=== PATIENT | female | born 1990 | race Caucasian/White ===

== ENCOUNTER 2017-10-14 10:44 | Inpatient (IN) | payer MEDICAID, OTHER ==
[~2017-10-14] VITALS: Ht 162.6 cm; Wt 63.0 kg
[2017-10-14] VITALS (11 sets, daily range): BP systolic 90–117; BP diastolic 52–74
[2017-10-14] MEDS ORDERED: SODIUM CHLORIDE 0.9% 500 ML IV ONE (11:30)
[2017-10-14 11:53] LABS: Basophils # (auto) 0 uL; Eosinophils # (auto) 0 uL; Monocytes # (auto) 0.3 uL; Neutrophils # (auto) 1.4 uL; White Blood Cell 2.7 10^3/uL (4.4-10.8)
[2017-10-14 11:55] LABS: Basophils % (auto) 1.5 % (0.0-2.0); Hematocrit 12.9 % (36.0-46.0); Lymphocytes % (auto) 35.4 % (10.0-50.0); Mean Corpuscular Hemoglobin 15.8 pg (28.0-32.0); Mean Corpuscular Hgb Conc. 27.8 g/dL (32.0-36.0); Mean Corpuscular Volume 56.8 fL (80.0-100.0); Monocytes % (auto) 11.6 % (0.0-12.0); Neutrophils % (auto) 51.5 % (37.0-80.0); Nucleated Red Blood Cells % 2.5 %; Platelet Count (auto) 243 10^3/uL (140-450); Red Blood Cells 2.27 10^6/uL (4.0-5.20)
[2017-10-14 11:57] LABS: Hemoglobin 3.6 g/dL (12.2-16.2); Red Cell Distribution Width 21.6 % (11.8-14.3)
[2017-10-14 12:28] LABS: Albumin 3.4 g/dL (3.4-5.0); BUN/Creatinine Ratio 8.6; Bilirubin, Total 1.6 mg/dL (0.2-1.0); Calcium 7.9 mg/dL (8.5-10.1); Potassium 3.3 mmol/L (3.5-5.1); Total Protein 6.3 g/dL (6.4-8.2)
[2017-10-14] MEDS ORDERED: MORPHINE SULF INJ 2 MG/ML SYRINGE 1ML IV PRN ×2 (12:45)
[2017-10-14] MEDS ORDERED: PROMETHAZINE HCL 25 MG/ML 1ML IV PRN (12:45)
[2017-10-14] MEDS ORDERED: LACTULOSE 20Gm/30ML SOLN PO PRN (12:45)
[2017-10-14] MEDS ORDERED: NITROGLYCERIN 0.4 MG SL TAB SL PRN (12:45)
[2017-10-14] MEDS ORDERED: TEMAZEPAM 15 MG CAP PO PRN (12:45)
[2017-10-14] MEDS ORDERED: HYDROcodone-ACET 5/325MG TAB PO PRN (12:45)
[2017-10-14] MEDS ORDERED: ACETAMINOPHEN 500 MG TAB PO PRN (12:45)
[2017-10-14] MEDS ORDERED: LORazepam 0.5 MG TAB PO PRN (12:45)
[2017-10-14] MEDS: SOD CHL 0.9%/ KCL 20MEQ 1,000 ML IV SCH ×2 (13:46→22:34)
[2017-10-14] MEDS ORDERED: GASTROGRAFIN 30 ML SOL ONE (14:57)
[2017-10-14] MEDS ORDERED: IOHEXOL 300 MG/ML 100ML BOTTLE IJ ONE (16:53)
[2017-10-14 22:38] LABS: Hematocrit 22.5 % (36.0-46.0)
[2017-10-14 22:59] LABS: Follicle Stimulating Hormone 7.4 IU/L (SEE BELOW); Leuteinizing Hormone 12.2 IU/L; Prolactin 5.56 ng/mL (2.8-29.2)
[2017-10-15] VITALS (14 sets, daily range): BP systolic 93–125; BP diastolic 55–70
[2017-10-15] MEDS ORDERED: FERR1TAB36 PO (00:53)
[2017-10-15 01:15] LABS: Hematocrit 21.3 % (36.0-46.0)
[2017-10-15 01:20] LABS: Hemoglobin 6.4 g/dL (12.2-16.2)
[2017-10-15 07:12] LABS: Urine Bacteria MANY /hpf (None Seen); Urine Blood 3+ /uL (Negative); Urine Specific Gravity 1.009 (1.001-1.035); Urine WBC 50 /hpf (0 - 5)
[2017-10-15] MEDS: SOD CHL 0.9%/ KCL 20MEQ 1,000 ML IV SCH ×2 (09:00→19:09)
[2017-10-15] MEDS: PANTOPRAZOLE 40 MG TAB PO SCH (10:01)
[2017-10-15 11:44] LABS: Basophils # (auto) 0 uL; Eosinophils # (auto) 0 uL; Hemoglobin 7.5 g/dL (12.2-16.2); Lymphocytes # (auto) 0.8 uL; Neutrophils # (auto) 2.4 uL
[2017-10-15 11:47] LABS: Basophils % (auto) 0.8 % (0.0-2.0); Eosinophils % (auto) 0.4 % (0.0-7.0); Hematocrit 24.4 % (36.0-46.0); Lymphocytes % (auto) 22.8 % (10.0-50.0); Mean Corpuscular Hemoglobin 22.2 pg (28.0-32.0); Mean Corpuscular Hgb Conc. 30.8 g/dL (32.0-36.0); Mean Corpuscular Volume 72.2 fL (80.0-100.0); Monocytes # (auto) 0.4 uL; Monocytes % (auto) 9.6 % (0.0-12.0); Neutrophils % (auto) 66.4 % (37.0-80.0); Nucleated Red Blood Cells % 0.6 %; Platelet Count (auto) 222 10^3/uL (140-450); Red Blood Cells 3.38 10^6/uL (4.0-5.20); White Blood Cell 3.7 10^3/uL (4.4-10.8)
[2017-10-15 11:52] LABS: Red Cell Distribution Width 32.6 % (11.8-14.3)
[2017-10-15 12:10] LABS: Cholesterol 72 mg/dL (< 200); HDL Cholesterol 18 mg/dL (40-59); LDL Cholesterol 55 mg/dL (< 100); Triglycerides 87 mg/dL (< 150)
[2017-10-16] VITALS (7 sets, daily range): BP systolic 95–107; BP diastolic 53–66
[2017-10-16] MEDS: SOD CHL 0.9%/ KCL 20MEQ 1,000 ML IV SCH ×2 (05:09→14:45)
[2017-10-16] MEDS: PANTOPRAZOLE 40 MG TAB PO SCH (10:20)
[2017-10-16 14:19] LABS: Basophils # (auto) 0 uL; Lymphocytes # (auto) 1.5 uL; Monocytes # (auto) 0.2 uL; Neutrophils % (auto) 60.8 % (37.0-80.0); White Blood Cell 4.7 10^3/uL (4.4-10.8)
[2017-10-16 14:21] LABS: Basophils % (auto) 0.6 % (0.0-2.0); Eosinophils # (auto) 0 uL; Hematocrit 33.2 % (36.0-46.0); Hemoglobin 10.4 g/dL (12.2-16.2); Lymphocytes % (auto) 32.7 % (10.0-50.0); Mean Corpuscular Hgb Conc. 31.2 g/dL (32.0-36.0); Mean Corpuscular Volume 74.7 fL (80.0-100.0); Monocytes % (auto) 4.9 % (0.0-12.0); Neutrophils # (auto) 2.8 uL; Nucleated Red Blood Cells % 0.1 %; Platelet Count (auto) 230 10^3/uL (140-450); Red Blood Cells 4.45 10^6/uL (4.0-5.20)
[2017-10-16 14:28] LABS: Mean Corpuscular Hemoglobin 23.3 pg (28.0-32.0)
[2017-10-16] MEDS: SODIUM FERR GLUC 62.5MG/5ML 125 MG in SODIUM CHL 0.9% 100 ML IV SCH (14:32)
[2017-10-16 14:40] LABS: % Iron Saturation 6.8 % (15-50); BUN/Creatinine Ratio 6.8; Calcium 7.8 mg/dL (8.5-10.1); Potassium 3.9 mmol/L (3.5-5.1)
[2017-10-16 15:40] LABS: INR 0.96 (0.9-1.15); Partial Thromboplastin Time 24.4 sec (23.78-33.04); Prothrombin Time 10.3 sec (9.27-12.13)
[2017-10-16] MEDS: FERROUS SULFATE 325 MG TAB PO SCH (18:32)
[2017-10-17] MEDS: SOD CHL 0.9%/ KCL 20MEQ 1,000 ML IV SCH (02:12)
[2017-10-17 05:57] VITALS: BP 104/64
[2017-10-17 07:03] LABS: Eosinophils # (auto) 0.1 uL; Monocytes # (auto) 0.3 uL; Red Blood Cells 4.15 10^6/uL (4.0-5.20); White Blood Cell 4.9 10^3/uL (4.4-10.8)
[2017-10-17 07:07] LABS: Basophils # (auto) 0.1 uL; Basophils % (auto) 1.1 % (0.0-2.0); Eosinophils % (auto) 1.8 % (0.0-7.0); Hematocrit 31.4 % (36.0-46.0); Hemoglobin 9.9 g/dL (12.2-16.2); Lymphocytes # (auto) 1.3 uL; Lymphocytes % (auto) 27.6 % (10.0-50.0); Mean Corpuscular Hemoglobin 23.9 pg (28.0-32.0); Mean Corpuscular Hgb Conc. 31.6 g/dL (32.0-36.0); Mean Corpuscular Volume 75.7 fL (80.0-100.0); Monocytes % (auto) 6.3 % (0.0-12.0); Neutrophils # (auto) 3.1 uL; Neutrophils % (auto) 63.2 % (37.0-80.0); Nucleated Red Blood Cells % 0.3 %; Platelet Count (auto) 219 10^3/uL (140-450)
[2017-10-17 07:20] LABS: Red Cell Distribution Width 30.4 % (11.8-14.3)
[2017-10-17 07:37] LABS: BUN/Creatinine Ratio 5.1; Calcium 7.7 mg/dL (8.5-10.1); Potassium 3.9 mmol/L (3.5-5.1)
[2017-10-17 08:00] VITALS: BP 107/72
[2017-10-17] MEDS: FERROUS SULFATE 325 MG TAB PO SCH (08:56)
[2017-10-17 09:04] LABS: Folate (Folic Acid) 7.54 ng/mL (5.38-24)
[2017-10-17] MEDS: PANTOPRAZOLE 40 MG TAB PO SCH (10:31)
[2017-10-17 12:00] VITALS: BP 105/62
[2017-10-17] MEDS: SODIUM FERR GLUC 62.5MG/5ML 125 MG in SODIUM CHL 0.9% 100 ML IV SCH (12:00)
[2017-10-17 13:05] VITALS: BP 105/62
== END 2017-10-17 15:00 | disposition home or self-care (01) | DRG 532 ==
LOC: ER 10:44 → EDBD 10:44 → TELE 10:45 → DOU IN ICU 23:05 → TELE-EAST 10-15 12:42
PROVIDERS: ADMIT Internal Medicine; ATTEND Internal Medicine
PROC: 30233N1 Transfusion of Nonautologous Red Blood Cells into Peripheral Vein, Percutaneous Approach (ICD-10-PCS; principal; 2017-10-14)
DX: N93.8 Other specified abnormal uterine and vaginal bleeding (principal); D62 Acute posthemorrhagic anemia; D50.0 Iron deficiency anemia secondary to blood loss (chronic); D72.819 Decreased white blood cell count, unspecified; E87.6 Hypokalemia
CPT/HCPCS: 36415; 36430; 71046; 74177; 76856; 80048; 80053; 80061; 81001; 82378; 82607; 82746; 83001; 83002; 83540; 83550; 84146; 84443; 84702; 85014; 85018; 85025; 85045; 85576; 85610; 85652; 85730; 86850; 86870; 86900; 86901; 86902; 86920; 86922; 87081; 87086; 93005; 94761; 96360; J7060